=== PATIENT | female | born 1975 | race Caucasian/White ===

== ENCOUNTER 2018-01-21 15:36 | Emergency (ER) | payer OTHER ==
[~2018-01-21] VITALS: Ht 167.6 cm; Wt 97.1 kg
[~2018-01-21 15:36] MED LIST: KETO10TA2 PO; [UNRECOGNIZED DRUG - OTHER]
== END 2018-01-21 18:52 | disposition home or self-care (01) ==
LOC: ER 15:36
DX: J11.1 Influenza due to unidentified influenza virus with other respiratory manifestations (principal); J06.9 Acute upper respiratory infection, unspecified

== ENCOUNTER 2019-08-28 13:29 | Emergency (ER) | payer OTHER ==
[~2019-08-28] VITALS: Ht 170.2 cm; Wt 97.5 kg
== END 2019-08-28 17:50 | disposition home or self-care (01) ==
LOC: ER 13:29
DX: N20.0 Calculus of kidney (principal); N39.0 Urinary tract infection, site not specified

== ENCOUNTER 2022-02-02 20:53 | Emergency (ER) | payer OTHER ==
[~2022-02-02] VITALS: Ht 167.6 cm; Wt 97.5 kg
[2022-02-03] MEDS ORDERED: PEPCID40 MG PO (02:01)
[2022-02-03] MEDS ORDERED: ZOFRAN8 MG PO (02:01)
[2022-02-03] MEDS ORDERED: CEPHALEXIN500 MG PO (02:01)
== END 2022-02-03 02:09 ==
LOC: ER 20:53
DX: N39.0 Urinary tract infection, site not specified (principal); R51.9 Headache, unspecified; Z20.822 Contact with and (suspected) exposure to COVID-19